=== PATIENT | female | born 1960 | race African-American/Black ===

== ENCOUNTER 2019-08-28 10:15 | Outpatient (RCR) | payer BC, SELFPAY ==
--- NOTE | 2019-08-21 14:23 | PTOPEVAL ---
Thank you for referring Caitlin Myers to [facility] [place]. Please review, sign, date and return this plan of care JOHN. Pt referred to therapy due to chronic back pain. She is limited with all daily activities and work task due to pain and restricted motion. She requires additional skilled therapy to address muscle weakness, decrease trunk and hip motion, soft tissue restriction and increased pain with daily activities. Cont PT 2x/wk x 6 wk. I agree with and certify that the following plan of care is medically necessary. Referring Physician Date Attending Provider: Phyllis Callejas, GARETH Referring Provider: *PT Outpatient Evaluation Start: 08/21/19 13:22 Freq: Status: Active Protocol: Document 08/21/19 13:20 CAP (Rec: 08/21/19 13:58 [facility] [id number]) Therapy Assessment Status Assessment Status Assessment Status Evaluation Outpatient Past Medical History Past Medical History Source of Past Medical History Patient,Recalled from Previous Visit, Confirmed with Patient /Family Cardiovascular History Hx Hypertension Yes Gastrointestinal History Hx Other Gastrointestinal Disorders Yes: weight gain, BMI 40 Musculoskeletal History Hx Back Pain Yes Hx Joint Replacement Yes: darian TKR Integumentary History Hx Eczema Yes Evaluation Information Problem Diagnosis low back pain Onset 6 year Cause unknown Subjective Information Pt was seen by her MD 07/05 for Query Text:As Reported By Patient/ chronic back pain. Family She had previous PT, but does not perform HEP. Does not perform fitness program. REports difficulty with prolonged sitting or standing, bending forward, lower body dressing act. 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 Pain does not wake her at night. Taking over the counter for pain. Previously took percosit Previous Treatments Previous Treatments For This Problem yes,2018 Prior Level of Function Activity Level (Last 3 Months) Occupation [employer] : 8 hours of standing Hand Dominance Left Activity of Daily Living Ability Independent Indoor/Home Mobility Independent Community Mobility Independent Cooking Yes Cleaning Yes Laundry Yes
--- NOTE | 2019-08-28 10:36 | PCPTNOTE ---
Patient did not show up for scheduled appointment this date.
--- NOTE | 2019-08-30 15:55 | PCPTNOTE ---
Patient did not show up for scheduled appointment this date.
--- NOTE | 2019-09-19 09:09 | PCPTNOTE ---
Admitting Provider: Attending Provider: Phyllis Callejas, GARETH Patient:Caitlin Myers Date of :1960 Discharge Summary Patient has not returned for any further treatments since 08/23/2019, therefore she will be discharged at this time. Patient?s initial visit was on 08/21/2019 13:15 and she had a total of 2 visits. No changes in symptoms, function or objective measures due to limited therapy visits received. The goals have been not met due to limited therapy visits attended. Thank you for referring this patient to [facility]. Please review, sign, date and return this discharge summary JOHN. I have been updated about the patient's current status and I agree with discharge from the above service at this time. Referring Physician Date
== END 2019-09-19 12:33 | disposition home or self-care (01) ==
LOC: ANHPT 10:15
PROVIDERS: Visit Provider Physician Assistant
DX: M54.5 Low back pain (principal)
CPT/HCPCS: 97014; 97110; 97140; 97162; G0283

== ENCOUNTER 2020-02-20 09:41 | Outpatient (CLI) | payer BC, SELFPAY ==
--- NOTE | ~2020-02-20 | XR_ITS ---
XR foot RT min 3V DATE: 02/20/2020 09:59 INDICATION: Pain across the dorsum of the right foot for 2 months. No injury. TECHNIQUE: 4 views COMPARISON: None FINDINGS: There is mild plantar calcaneal enthesopathy. No fracture or dislocation, periosteal reacti on or bone destruction. IMPRESSION: Mild plantar calcaneal enthesopathy Reviewed, dictated and finalized at location A.
== END 2020-02-20 09:42 | disposition home or self-care (01) ==
PROVIDERS: PCP Physician Assistant; Visit Provider Physician Assistant
DX: M77.31 Calcaneal spur, right foot (principal)
CPT/HCPCS: 73630

== ENCOUNTER 2020-06-20 17:06 | Emergency (ER) | payer BC, SELFPAY ==
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
[2020-06-20 17:27] VITALS: BP 147/90; PULSE 83; RESP 16; TEMP 36.3; O2SAT 100
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
== END 2020-06-20 19:53 | disposition home or self-care (01) ==
PROVIDERS: Emergency Provider Emergency Medicine; PCP Physician Assistant
DX: M62.838 Other muscle spasm (principal); S43.401A Unspecified sprain of right shoulder joint, initial encounter; I10 Essential (primary) hypertension; V49.50XA Passenger injured in collision with unspecified motor vehicles in traffic accident, initial encounter
CPT/HCPCS: 71046; 73030; 73590; 99284

== ENCOUNTER 2020-10-04 11:15 | Emergency (ER) | payer BC, SELFPAY ==
[2020-10-04 11:24] VITALS: BP 145/79; PULSE 89; RESP 18; TEMP 36.7; O2SAT 100
--- NOTE | 2020-10-04 11:30 | ED.URI ---
HPI - URI/Sore Throat General Chief Complaint: Upper Respiratory Infection Stated Complaint: Shortness of breath,Dizzy Time Seen by Provider: 10/04/20 11:32 Source: patient and RN notes reviewed Mode of arrival: ambulatory Limitations: no limitations History of Present Illness HPI Narrative: 59-year-old female presents with concern for shortness of breath. Reports a history of asthma. Reports history of bronchitis infections. Reports 2 days ago she started having worsening shortness of breath. Reports she has been using her albuterol inhaler over the last 2 days every 3-4 hours. Reports she has nebulizer solution at home, however does not have a machine. Reports on a normal basis when she is feeling healthy she does not need to use her albuterol inhaler. She denies rhinorrhea, nasal congestion, fever, body aches, chills, sweats. Reports she has been Covid vaccinated. MD elicited complaint: other (SOB) Related Data Home Medications Medication Instructions Recorded Confirmed amlodipine 10 mg PO DAILY 10/04/20 10/04/20 atorvastatin 20 mg PO DAILY 10/04/20 10/04/20 ibuprofen 400 mg PO DIRECTED 10/04/20 10/04/20 venlafaxine 37.5 mg PO DAILY 10/04/20 10/04/20 Allergies Allergy/AdvReac Type Severity Reaction Status Date / Time No Known Allergies Allergy Verified 10/04/20 11:37 Review of Systems Review of Systems: Narrative: CONSTITUTIONAL: Denies malaise, chills, sweats, or fever. EYES: Denies visual changes, redness, or discharge. ENT: Denies rhinorrhea, congestion, sinus pain, otalgia and sore throat. CARDIOVASCULAR: Denies chest pain, palpitations, or edema. RESPIRATORY: Reports cough, dyspnea. GASTROINTESTINAL: Denies abdominal pain, nausea, vomiting, diarrhea SKIN: Denies rash or itching. MUSCULOSKELETAL: Denies myalgia. NEUROLOGIC: Denies headache. Reports dizziness All systems reviewed & are unremarkable except as noted in HPI and below PMFSH Comments At time of signature, agree with nursing past medical, surgical, social and family history. There is no relevant family history pertinent to the presenting complaint Exam Narrative: Exam Narrative: GENERAL: Well-appearing, well-nourished, and in no acute distress. HEAD: Normocephalic EYES: PERRLA, conjunctivae clear ENT: Nares clear. Mucous membranes moist. TM pearly dugan with dull light reflex bilaterally; no tragal tenderness. Oropharynx not erythematous without lesions. Tonsils not enlarged and without exudate, no drooling, no hoarseness, no trismus, uvula midline. NECK: Supple. No lymphadenopathy CHEST: Clear to auscultation, breath sounds equal, diminished aeration. No wheezing, rhonchi, rales, or stridor. Conversational dyspnea HEART: Regular rate and rhythm. No murmur heard. SKIN: Warm, dry, no rash. NEURO: Alert and oriented x3. PSYCH: Normal mood and affect Course Course Emergency Course: Patient is aware of diagnosis, understands and agrees to treatment plan. Anticipatory guidance given. Patient agrees to follow-up as directed and is aware of reasons to seek care at the emergency department. Portions of this record may have been created with voice recognition software Reevaluation(s) Reevaluation #1: Aeration improved with DuoNeb treatment. Date: 10/04/20 Time: 12:03 Vital Signs Vital signs: Vital Signs Temperature 98.0 F 10/04/20 11:24 Pulse Rate 89 10/04/20 11:24 Respiratory Rate 18 10/04/20 11:24 Blood Pressure 145/79 H 10/04/20 11:24 Pulse Oximetry 100 10/04/20 11:24 Temperature 98.0 F 10/04/20 11:24 Pulse Rate 89 10/04/20 11:24 Respiratory Rate 18 10/04/20 11:24 Blood Pressure 145/79 H 10/04/20 11:24 Pulse Oximetry 100 10/04/20 11:24 Reviewed. MDM - URI/Sore Throat MDM Narrative Medical decision making narrative: Differential diagnosis considered: Asthma exacerbation, Rogers virus, strep pharyngitis, allergic rhinitis, upper respiratory tract infection, sinusitis, rhinosinusitis, nasopharyngitis. vi
[2020-10-04 11:45] VITALS: PULSE 89; RESP 22; O2SAT 100
[2020-10-04] MEDS: ALBUTEROL SULFATE NEB 2.5 MG/3 ML INH INHALATION (11:45)
[2020-10-04] MEDS: IPRATROPIUM BR 0.02% INH SOLN 0.5 MG/2.5 ML VIAL INHALATION (11:45)
[2020-10-04 12:12] VITALS: PULSE 86; RESP 20; O2SAT 100
== END 2020-10-04 12:15 | disposition home or self-care (01) ==
PROVIDERS: Emergency Provider Nurse Practitioner
DX: J45.901 Unspecified asthma with (acute) exacerbation (principal); E78.00 Pure hypercholesterolemia, unspecified; I10 Essential (primary) hypertension; Z96.653 Presence of artificial knee joint, bilateral
CPT/HCPCS: 94640; 99203; G0463

== ENCOUNTER 2020-12-04 08:17 | Observation (INO) | payer BC, SELFPAY ==
[2020-12-04] VITALS (9 sets, daily range): BP systolic 142–180; BP diastolic 68–100; PULSE 57–93; RESP 14–28; TEMP 36.2–36.6; O2SAT 96–100; BMI 37.9
--- NOTE | ~2020-12-04 | XR_ITS ---
EXAMINATION: XR chest 2V DATE: 12/04/2020 09:02 INDICATION: Chest pain and dizziness TECHNIQUE: AP and lateral views of the chest are obtained. COMPARISON: 06/20/2020 FINDINGS: The lungs are free of acute opacities. There is no pleural effusion or pneumothorax. The ca rdiomediastinal silhouette is normal. There is moderate thoracic spondylosis. IMPRESSION: 1. No acute cardiopulmonary abnormality. Reviewed, dictated and finalized at location B.
--- NOTE | 2020-12-04 08:35 | ECG_ITS ---
Measurements Intervals [place] Rate: 81 P: 65 IN: 162 QRS: -8 QRSD: 85 T: 30 QT: 346 QTc: 404 Interpretive Statements SINUS RHYTHM NONSPECIFIC T-WAVE ABNORMALITY- ANTERIOR LEADS BASELINE ARTIFACT- II, AVR, AVL BORDERLINE ECG Electronically Signed On 12-04-2020 9:07:28 CDT by Maco Lindsey D.O.
[2020-12-04 08:52] LABS: Basophils Percent Auto 0.3 % (0.2-1.2); Eosinophils Percent Auto 0.6 % (0-4.4); Hematocrit 45.3 % (37.0-47.0); Hemoglobin 14.8 g/dL (12.0-15.0); Immature Granulocyte Absolute 0.03 K/mm3 (0.00-0.031); Immature Granulocyte Percent A 0.4 % (0-0.5); Lymphocytes Absolute Auto 1.67 K/mm3 (0.9-3.2); Lymphocytes Percent Auto 23.2 % (18.3-44.2); Mean Corpuscular HGB Conc 32.7 g/dl (32-36); Mean Corpuscular Hemoglobin 28.8 pg (26-34); Mean Corpuscular Volume 88.3 fl (80-100); Mean Platelet Volume 11.1 fl (7.4-10.4); Monocytes Absolute Auto 0.5 K/mm3 (0.1-0.6); Monocytes Percent Auto 7.1 % (2.6-8.5); Neutrophils Absolute Auto 4.9 K/mm3 (1.3-6.7); Neutrophils Percent Auto 68.4 % (45.5-73.1); Platelet Count Result 247 k/mm3 (150-375); Red Blood Count 5.13 M/mm3 (4.2-5.4); Red Cell Distribution Width 13.2 % (11.5-14.5); White Blood Count 7.2 K/mm3 (4.5-10.0)
[2020-12-04 09:02] LABS: Anion Gap 10 mmol/L (8-16); Blood Urea Nitrogen 18 mg/dL (7-17); Calcium 9.4 mg/dL (8.4-10.2); Carbon Dioxide 21 mmol/L (22-30); Chloride 109 mmol/L (98-107); Estimated CRCL calculation 45 ml/min; Estimated Glomerular Filt Rate 56; Glucose 103 mg/dL (65-110); Potassium 3.6 mmol/L (3.4-5.0); Sodium 140 mmol/L (137-145)
[2020-12-04 09:04] LABS: Prothrombin Time 12.8 Seconds (11.1-14.7)
[2020-12-04 09:05] LABS: Partial Thromboplastin Time 24.2 SECONDS (22.3-36.8)
[2020-12-04 09:13] LABS: Troponin I 0.013 ng/mL (0.000-0.034)
[2020-12-04] MEDS: ASPIRIN 81 MG CHEWABLE TABLET 324 MG PO (10:17)
[2020-12-04] MEDS: MORPHINE SULFATE (*CRX) 2 MG/ML INJ IV PUSH (10:17)
[2020-12-04] MEDS: SODIUM CHLORIDE 0.9% IV 1,000 ML 999 ML IV CONT (11:13)
--- NOTE | 2020-12-04 11:17 | ED.GENADULT ---
HPI - General Adult General Chief complaint: Chest Pain Stated complaint: chest pain Time Seen by Provider: 12/04/20 09:37 Source: patient and RN notes reviewed Mode of arrival: ambulatory Limitations: no limitations History of Present Illness HPI narrative: Patient is a 59-year-old female who presents to emergency department for evaluation of midsternal chest pain that began at 8:00 today felt very diaphoretic nauseous and not well at the onset symptoms have presented on arrival to emergency. Patient notes that yesterday she smoked a marijuana cigar with cocaine. Patient developed pain today which has persisted she has not taken anything for it denies similar occurrence in the past denies any URI symptoms or other complaints Related Data Home Medications Medication Instructions Recorded Confirmed [facility] 05/03/19 amlodipine 05/03/19 atorvastatin 05/03/19 hydrochlorothiazide 05/03/19 lisinopril 05/03/19 Allergies Allergy/AdvReac Type Severity Reaction Status Date / Time No Known Allergies Allergy Verified 12/04/20 08:40 Review of Systems Review of Systems: All systems reviewed & are unremarkable except as noted in HPI and below PMFSH Past Medical History Medical History (Updated 12/04/20 @ 11:21 by Darrel Martínez PA-C) HTN (hypertension) Hyperlipidemia Surgical History Surgical History No significant past surgical history Social History Social History (Updated 12/04/20 @ 11:19 by Darrel Martínez PA-C) Smoking status: Never smoker Substance use type: marijuana Gender identity (if verbalized by the patient): Female Exam Narrative: Exam Narrative: GENERAL: Well-appearing, well-nourished, and in no acute distress. HEAD: Normocephalic, atraumatic. EYES: PERRLA and EOMI. ENT: Nares clear, no rhinorrhea or epistaxis. Mucous membranes moist. CHEST: Clear to auscultation. No respiratory distress. No wheezes rales or rhonchi HEART: Regular rate and rhythm. No murmur heard. Normal peripheral pulses. ABDOMEN: Soft, nontender, nondistended EXTREMITIES: Normal range of motion. No edema. SKIN: Warm, dry, no rash. NEURO: No focal deficits. Alert and oriented x3. Cranial nerves II through XII grossly intact PSYCH: Normal mood and affect. Course Course Emergency Course: Patient in the room evaluated for chest pain will be brought into the hospital given her heart care score and her presentation and risk factors patient with ABCs and vital signs intact and stable feeling better at this time resting comfortably in no distress Consultations Consultation #1: Discussed case with the cardiology group will consult on patient Discussed case with the hospitalist Dr. Tyson who is agreed to accept the patient Date: 12/04/20 Time: 11:20 Vital Signs Vital signs: Vital Signs Temperature 97.2 F L 12/04/20 08:35 Pulse Rate 82 12/04/20 08:35 Respiratory Rate 28 H 12/04/20 08:35 Blood Pressure 180/100 H 12/04/20 08:35 Pulse Oximetry 100 12/04/20 08:35 Temperature 97.2 F L 12/04/20 08:35 Pulse Rate 93 12/04/20 10:18 Respiratory Rate 19 12/04/20 10:18 Blood Pressure 145/93 H 12/04/20 10:18 Pulse Oximetry 99 12/04/20 10:18 Medical Decision Making MDM Narrative Medical decision making narrative: Patient presented with chest pain to the hospital will be brought in for further risk ratification and evaluation hemodynamically stable at this time no high risk changes in her initial evaluation agreeing to stay in hospital ABCs and vital signs intact and stable Vital Signs Vital Signs: Vital Signs Temperature 97.2 F L 12/04/20 08:35 Pulse Rate 82 12/04/20 08:35 Respiratory Rate 28 H 12/04/20 08:35 Blood Pressure 180/100 H 12/04/20 08:35 Pulse Oximetry 100 12/04/20 08:35 Temperature 97.2 F L 12/04/20 08:35 Pulse Rate 93 12/04/20 10:18 Respiratory Rate 19 12/04/20 10:18 Blood Pressure 145/
[2020-12-04] MEDS: LIDOCAINE HCL 2% VISC SOLN 15 ML UDC 20 ML PO (11:43)
[2020-12-04] MEDS: MAG HYDROX/AL HYDROX/SIMETH 30 ML UDC PO (11:43)
[2020-12-04] MEDS: MORPHINE SULFATE (*CRX) 4 MG/ML INJ IV PUSH (12:39)
[2020-12-04] MEDS: NITROGLYCERIN SL 0.4 MG TABLET SUBLINGUAL (12:39)
[2020-12-04 12:47] LABS: Cholesterol 214 mg/dL (0-200); HDL Direct 48 mg/dL; Triglycerides 114 mg/dL (<150)
[2020-12-04 12:58] LABS: LDL Cholesterol Direct 110 mg/dL
[2020-12-04 12:59] LABS: Troponin I < 0.012 ng/mL (0.000-0.034)
--- NOTE | 2020-12-04 13:38 | ADMGEN ---
This patient, Caitlin Myers, was admitted to IMU Room 206-0@ 1335. Patient/ oriented to hospital policies and general routines including ID bracelet, bed and alarms, visiting hours, pain management, procedures, bathroom and other care routines, personal items, smoking policy, room service/diet, and visiting hours. Information on how to activate the Rapid Response Team has been discussed. Patient encouraged to report perceived risks to care and to ask questions if they do not understand what they are told or what they should do.
[2020-12-04 15:03] LABS: Troponin I < 0.012 ng/mL (0.000-0.034)
--- NOTE | 2020-12-04 16:55 | PM.IMHP ---
H&P: HPI History of Present Illness Date/Time: 12/04/20 16:55 Chief Complaint: chest pain Narrative: date of service: 12/04/2020 Caitlin Myers is a 59-year-old female with a history of hypertension, hyperlipidemia, COPD, and CVA who Presented to the emergency department on 12/04/2020 with pain. 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 She became diaphoretic and felt lightheaded and nauseous. She developed stabbing substernal chest pain which she rated as 9/10. She told her boss she needed to leave. She then went to her car and sat in the air conditioning for about 10 minutes and started to feel better. She then drove directly to the emergency room. Upon presentation to the emergency department, her blood pressure was elevated at 1 80/100, she was tachypneic, additional vital signs stable, CBC unremarkable, BUN and creatinine slightly elevated with additional electrolytes stable, troponin 0.013 and CXR with no acute cardiopulmonary findings. Upon my evaluation, she was feeling better. She was describing a burning sensation in the chest that she rated as 3/10. She denies symptoms of arm or jaw pain but she thinks she might have had pain in her left shoulder. Of note, she did unknowingly used marijuana laced with cocaine 1 day prior to presentation. She is being admitted to the hospitalist service for observation. Supervising physician for this history and physical is Dr. Rahul Felix. Review of Systems Review of Systems: Narrative: All systems reviewed with pertinent positives and negatives as per HPI. Additionally, patient endorses a frontal headache which occurred after taking a dose of nitroglycerin. She denies dizziness or lightheadedness. Denies numbness or tingling in her extremities. No palpitations. Denies any significant anxiety. She does endorse nausea but has not vomited. Denies shortness of breath, CID, wheezing, cough. she uses her rescue inhaler every 1-2 days. She also complains of chronic low back pain. She has no significant cardiac history aside from hypertension which has previously been uncontrolled. She reports she was hospitalized approximately a year ago with elevated blood pressures and at that time there was concern for possible aortic dissection which was ruled out. She has a family history of heart disease and her mother of an NH when she was 46 years old. PMFSH Past Medical History Medical History (Updated 12/04/20 @ 17:08 by Italia Benton PA-C) COPD (chronic obstructive pulmonary disease) CVA (cerebral vascular accident) HTN (hypertension) Hyperlipidemia Ovarian cyst Surgical History Surgical History (Updated 12/04/20 @ 17:08 by Italia Benton PA-C) History of knee replacement History of tubal ligation No significant past surgical history Family History Family History (Updated 12/04/20 @ 17:09 by Italia Benton PA-C) Grandparent Hypertension Mother Hypertension Heart disease Father Throat cancer Hypertension Social History Social History (Updated 12/04/20 @ 17:11 by Italia Benton PA-C) Social History: Ms. Myers lives at home with her boyfriend. She is independent in her daily activities. She works at a [employer]. Her PCP is Phyllis Jones PA-C. She designates her daughter, Liz, as her surrogate decision maker. She would like to be a full code. Smoking status: Never smoker Alcohol intake: current Alcohol use details: 1 glass of wine/6 months Substance use: current Substance use type: marijuana Other substance usage details: Smokes marijuana daily. Last use: 1 day ago smoked couple blunts of marijuana laced with cocaine Gender identity (if verbalized by the patient): Female Sexual Orientation (if Verbalized by the Patient): Straight or Heterosexual Spiritual care concerns: No Meds Home Medications and Allergies Home Medications Medication Instructions Recorded C
[2020-12-04] MEDS: FAMOTIDINE 20 MG TABLET PO (21:03)
[2020-12-05] VITALS: BP 149/69; PULSE 59; PULSE 65; RESP 16; TEMP 36.6; O2SAT 98
[2020-12-05 02:00] VITALS: PULSE 53
[2020-12-05 04:00] VITALS: BP 159/79; PULSE 56; PULSE 68; RESP 16; TEMP 36.1; O2SAT 100
[2020-12-05 05:18] LABS: Hematocrit 41.8 % (37.0-47.0); Hemoglobin 13.8 g/dL (12.0-15.0); Mean Corpuscular Hemoglobin 29.1 pg (26-34); Mean Corpuscular Volume 88.2 fl (80-100); Mean Platelet Volume 11.2 fl (7.4-10.4); Platelet Count Result 196 k/mm3 (150-375); Red Blood Count 4.74 M/mm3 (4.2-5.4); Red Cell Distribution Width 13.1 % (11.5-14.5); White Blood Count 4.7 K/mm3 (4.5-10.0)
[2020-12-05 05:28] LABS: Anion Gap 6 mmol/L (8-16); Blood Urea Nitrogen 21 mg/dL (7-17); Calcium 8.5 mg/dL (8.4-10.2); Carbon Dioxide 26 mmol/L (22-30); Chloride 109 mmol/L (98-107); Estimated CRCL calculation 46 ml/min; Estimated Glomerular Filt Rate 56; Glucose 88 mg/dL (65-110); Potassium 3.7 mmol/L (3.4-5.0); Sodium 141 mmol/L (137-145)
[2020-12-05 06:00] VITALS: PULSE 52
[2020-12-05 08:00] VITALS: BP 152/90; PULSE 48; PULSE 52; RESP 14; TEMP 36.5; O2SAT 100
--- NOTE | 2020-12-05 08:32 | PM.CNCAR ---
Assessment and Plan Assessment and plan (1) Chest pain: Code(s): R07.9 - Chest pain, unspecified Status: Acute Assessment and Plan: Substernal chest pain that occurred at work yesterday. Relieved in the emergency department with morphine and nitroglycerin and has not returned. EKG obtained in the emergency department Did not show any ST segment abnormalities. Some nonspecific T-wave abnormalities were present. Serial troponins were drawn and were all negative. She is currently free from any chest pain. This does not represent ACS. Recent cocaine use could have contributed to this episode of chest pain. However, she does have risk factors for CAD. Therefore, I will arrange for her to have outpatient MPI performed in our office. Further recommendations to follow as an outpatient. - She was counseled on avoidance of cocaine - I instructed her that if her chest pain is to recur she should proceed to the emergency department. (2) HTN (hypertension): Code(s): I10 - Essential (primary) hypertension Status: Acute Assessment and Plan: Above goal. Would recommend discontinuing ibuporofen for arthritis and switching to tylenol. Will add lisinopril 2.5mg daily for better BP control. (3) Hyperlipidemia: Code(s): E78.5 - Hyperlipidemia, unspecified Status: Acute Assessment and Plan: On statin. Will obtain lipid panel at outpatient Cardiology follow-up visit. Additional Plan Discussed this patient and plan of care with Dr. Perry who is in agreement with the plan outlined in this note. History of Present Illness History of Present Illness Consult date/time: 12/05/20 08:32 Requesting physician: Darrel Martínez PA-C Consult reason: chest pain Reason For Visit: chest pain Narrative: This is a 59-year-old female with a medical history of hypertension, hyperlipidemia, asthma, COPD who I am seeing at the request GARETH Cota for our opinion regarding the patient's chest pain. She presented to the emergency department yesterday afternoon following an episode of chest pain that occurred while she was at work. 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 She says that yesterday while she was at work she had several short, intermittent periods chest tightness. She rates the intensity of the pain as an 8/10. She states that she began to feel lightheaded with these episodes therefore she decided to present to the emergency department for evaluation. She does state that she had a similar episode of chest pain about 1 week ago at work that resolved spontaneously. She also notes that the day prior to having this chest pain at work she smoked some marijuana with a friend that, unbeknownst to her, also had cocaine in it. She denies regular use of cocaine. She also tells me that several years ago while she was living in [place] she experienced some similar chest pain for which she was hospitalized for and underwent and echocardiogram but does not remember having any stress testing performed. She states that from what she remembers her echocardiogram showed a leaky valve but she has not seen a nascar racer since that time. In the emergency department here she was given morphine and nitroglycerin that resulted in resolution of her chest pain. Currently, she is pain-free and not experiencing any symptoms whatsoever. Review of Systems Review of Systems: All systems reviewed & are unremarkable except as noted in HPI and below Constitutional: Constitutional: Denies fatigue and Denies weakness Eyes: Eyes: Denies change in vision ENT: Reports Normal hearing present Cardiovascular: Cardiovascular: Reports chest pain, Reports pedal edema, Reports lightheadedness and Denies palpitations Respiratory: Respiratory: Denies dyspnea and Denies dyspnea on exertion Gastrointestinal: Gastrointestinal: Denies abdominal pain Genitourinary: Genitourin
[2020-12-05] MEDS: FAMOTIDINE 20 MG TABLET PO (09:42)
[2020-12-05] MEDS: amLODIPine BESYLATE 5 MG TABLET 10 MG PO (09:42)
[2020-12-05] MEDS: ASPIRIN 81 MG CHEWABLE TABLET PO (09:42)
--- NOTE | 2020-12-05 09:55 | PM.DS ---
DS: Admitting Diagnosis Admitting Diagnosis chest pain DS: Discharge Diagnosis Discharge Diagnosis (1) Chest pain: Code(s): R07.9 - Chest pain, unspecified Status: Acute Assessment and Plan: Presented with substernal chest pain initially stabbing in nature with associated nausea, diaphoresis, and lightheadedness. resolved. EKG reviewed with anterior T wave change; nonspecific finding Troponins negative x3 Pain resolved with morphine and nitroglycerin She was seen in consultation by cardiology. Not felt to be consistent with ACS. More likely to be related to recent cocaine use. Given her risk factors for CAD (HLD, HTN, obesity, family history) she will follow-up with cardiology as an outpatient for stress testing and echocardiogram Educated on avoidance of cocaine (2) ROBBIE (acute kidney injury): Code(s): N17.9 - Acute kidney failure, unspecified Status: Acute Assessment and Plan: Creatinine is 1.2 at presentation. Suspect pre-renal etiology. Patient was likely dehydrated as she was overheated at work. Received IV fluids. Encouraged adequated PO fluid intake She has been using ibuprofen daily. Discussed avoidance of NSAIDs. Follow up with PCP (3) HTN (hypertension): Code(s): I10 - Essential (primary) hypertension Status: Acute Assessment and Plan: BP was elevated above target. Continue amlodipine Low dose lisinopril added per cardiology recommendations Outpatient follow up with Cardiology for BP monitoring. Adust medications as needed. Avoid use of beta blockers given recent cocaine use (4) Hyperlipidemia: Code(s): E78.5 - Hyperlipidemia, unspecified Status: Acute Assessment and Plan: Lipid panel reviewed with elevated total cholesterol with adequate HDL and LDL Continue atorvastatin 20 mg daily Consider increase to high intensity statin; will follow up with cardiology for cholesterol management Educated on lifestyle modifications DS: Summary Hospital Course Hospital Course: date of admission: 12/04/2020 date of discharge: 12/05/2020 Caitlin Myers is a 59-year-old female with a history of hypertension, hyperlipidemia, COPD, and CVA who presented to the emergency department on 12/04/2020 with complaints of stabbing substernal chest pain with associated nausea and diaphoresis. Upon presentation to the emergency department, her blood pressure was elevated at 1 80/100, she was tachypneic, additional vital signs stable, CBC unremarkable, BUN and creatinine slightly elevated with additional electrolytes stable, troponin 0.013 and CXR with no acute cardiopulmonary findings. She was admitted to the hospitalist service for further evaluation and management and was seen in consultation by cardiology. Please see above for further details and review history and physical. Her chest pain resolved entirely and was not felt to be related to ACS, and rather most likely related to recent cocaine use. she felt much better and requested discharge home. She will follow-up with cardiology as an outpatient for further monitoring. Given overall improvement, she was determined to no longer require inpatient care and felt to be stable for discharge. Consulting services in agreement with discharge we discussed worrisome signs and symptoms for which to return and she was educated on her medications as well as avoidance of cocaine and other drugs. She was discharged in hemodynamically stable condition on 12/05/2020. Status at Discharge Functional status at discharge: independent ambulation Overall status at discharge: patient is back to baseline Time Spent with Patient Time attestation: Total time spent providing and/or coordinating discharge services: 45 minutes Time spent: Greater than 30 minutes Exam Narrative: Exam Narrative: Ms. Myers is a well-nourished, well-appearing 59-year-old female who is lying supine in bed. She ap
[2020-12-05 10:00] VITALS: PULSE 60
== END 2020-12-05 12:05 | disposition home or self-care (01) ==
LOC: ANHED 11:21 → ANHIMU 13:14
PROVIDERS: Physician Assistant; Admitting Provider Internal Medicine; Emergency Provider Emergency Medicine; PCP Physician Assistant; Visit Provider Internal Medicine
DX: R07.9 Chest pain, unspecified (principal); N17.9 Acute kidney failure, unspecified; I10 Essential (primary) hypertension; E78.5 Hyperlipidemia, unspecified; J44.9 Chronic obstructive pulmonary disease, unspecified; Z86.73 Personal history of transient ischemic attack (TIA), and cerebral infarction without residual deficits; M54.5 Low back pain; G89.29 Other chronic pain
CPT/HCPCS: 36415; 71046; 80048; 80061; 84484; 85025; 85027; 85610; 85730; 93005; 96361; 96374; 96375; 96376; 99285; A9270; G0378; G0379; J0131; J2270; J7030

== ENCOUNTER 2021-05-09 08:33 | Emergency (ER) | payer BC, SELFPAY ==
--- NOTE | ~2021-05-09 | XR_ITS ---
XR chest 1V portable DATE: 05/09/2021 09:07 INDICATION: Shortness of breath, chest pain TECHNIQUE: Portable upright AP chest on 05/09/2021 at 0901 hours COMPARISON: 12/04/2020 AP and lateral chest FINDINGS: Normal heart size. Mild aortic unfolding. No hilar or mediastinal enlargement. No pulmonary infiltrate or consolidation, pleural effusion or pulmonary vascular congestion or pneumo thorax. Osteopenia. Degenerative spurring of the thoracic spine. IMPRESSION: No active cardiopulmonary disease Reviewed, dictated and finalized at location A. ER MECHANIC
[2021-05-09 08:37] VITALS: BP 158/114; PULSE 85; RESP 18; TEMP 36.3; O2SAT 98
[2021-05-09 08:42] VITALS: O2SAT 98
--- NOTE | 2021-05-09 08:44 | ECG_ITS ---
Measurements Intervals [place] Rate: 77 P: 57 IA: 165 QRS: -3 QRSD: 79 T: 35 QT: 375 QTc: 427 Interpretive Statements SINUS RHYTHM NORMAL ECG Electronically Signed On 05-09-2021 14:29:26 [employer]STER MECH[employer]IC by Maco Lindsey D.O.
[2021-05-09 09:00] LABS: Alanine Aminotransferase 19 U/L (4-35); Albumin Level 4.2 g/dL (3.5-5.1); Alkaline Phosphatase 77 U/L (38-126); Anion Gap 4 mmol/L (8-16); Aspartate Amino Transferase 26 U/L (14-36); Bilirubin,Total 0.5 mg/dL (0.2-1.3); Blood Urea Nitrogen 14 mg/dL (7-17); Calcium 9.2 mg/dL (8.4-10.2); Carbon Dioxide 24 mmol/L (22-30); Chloride 106 mmol/L (98-107); Estimated CRCL calculation 61 ml/min; Estimated Glomerular Filt Rate > 60; Glucose 94 mg/dL (65-110); Potassium 4.3 mmol/L (3.4-5.0); Sodium 134 mmol/L (137-145)
[2021-05-09 09:03] LABS: Basophils Percent Auto 0.3 % (0.2-1.2); Eosinophils Absolute Auto 0.1 K/mm3 (0-0.3); Eosinophils Percent Auto 1.5 % (0-4.4); Hematocrit 43.8 % (37.0-47.0); Immature Granulocyte Absolute 0.02 K/mm3 (0.00-0.031); Immature Granulocyte Percent A 0.3 % (0-0.5); Lymphocytes Absolute Auto 1.43 K/mm3 (0.9-3.2); Lymphocytes Percent Auto 23.8 % (18.3-44.2); Mean Corpuscular HGB Conc 34.2 g/dl (32-36); Mean Corpuscular Hemoglobin 30.4 pg (26-34); Mean Corpuscular Volume 88.7 fl (80-100); Monocytes Absolute Auto 0.5 K/mm3 (0.1-0.6); Monocytes Percent Auto 8.2 % (2.6-8.5); Neutrophils Percent Auto 65.9 % (45.5-73.1); Platelet Count Result 199 k/mm3 (150-375); Red Blood Count 4.94 M/mm3 (4.2-5.4); Red Cell Distribution Width 13.2 % (11.5-14.5)
[2021-05-09 10:05] VITALS: BP 163/100; PULSE 76; RESP 17; O2SAT 98
--- NOTE | 2021-05-09 10:39 | ED.GENADULT ---
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 Patient is fully vaccinated for COVID-19 last vaccination was August 2020. Patient denies any fever, chills, nausea, vomiting Related Data Home Medications Medication Instructions Recorded Confirmed amlodipine 10 mg DAILY 05/03/19 12/04/20 atorvastatin 20 mg HS 05/03/19 12/04/20 Allergies Allergy/AdvReac Type Severity Reaction Status Date / Time No Known Allergies Allergy Verified 05/09/21 08:43 Review of Systems Review of Systems: CONSTITUTIONAL: Denies fever, chills, or sweats. EYES: Denies visual changes, redness, or discharge. ENT: Denies rhinorrhea, congestion, sore throat, or otalgia. CARDIOVASCULAR: Denies chest pain, palpitations, or edema. RESPIRATORY: Denies cough or dyspnea. GASTROINTESTINAL: Denies abdominal pain, nausea, vomiting, or diarrhea. GENITOURINARY: Denies dysuria or hematuria. SKIN: Denies rash or itching. MUSCULOSKELETAL: Denies back pain, joint pain, or myalgia. NEUROLOGIC: Denies headache, numbness, or weakness. PSYCHIATRIC: Denies anxiety or depression. [facility] Past Medical History Medical History COPD (chronic obstructive pulmonary disease) CVA (cerebral vascular accident) HTN (hypertension) Hyperlipidemia Ovarian cyst Surgical History Surgical History History of knee replacement History of tubal ligation No significant past surgical history Family History Family History Grandparent Hypertension Mother Hypertension Heart disease Father Throat cancer Hypertension Social History Social History Social History: Ms. Myers lives at home with her boyfriend. She is independent in her daily activities. She works at a [employer] plant. Her PCP is Phyllis Jones PA-C. She designates her daughter, Liz, as her surrogate decision maker. She would like to be a full code. Smoking status: Never smoker Alcohol intake: current Alcohol use details: 1 glass of wine/6 months Substance use: current Substance use type: marijuana Other substance usage details: Smokes marijuana daily. Last use: 1 day ago smoked couple blunts of marijuana laced with cocaine Gender identity (if verbalized by the patient): Female Sexual Orientation (if Verbalized by the Patient): Straight or Heterosexual Spiritual care concerns: No Exam Narrative: General appearance: Well-developed, well-nourished Skin: Normal color Head: Normocephalic, nontraumatic Eyes: Clear conjunctiva ENT: Oropharyngeal erythema Neck: Supple, nontender Chest and respiratory: Airway patent, no respiratory distress, no accessory muscle use Heart: Regular rate/rhythm Abdomen: Soft, nontender, no organomegaly, quiet bowel sounds Vascular: Normal peripheral pulses, normal capillary refill. Musculoskeletal: Normal range of motion, nontender back Neurologic: Alert and oriented ?3, DIRECTOR OF ENROLLMENT is normal as tested, no gross motor deficit Course Course Emergency Course: Stable Vital Signs Vital signs: Vital Signs Temperature 36.3 C L 05/09/21 08:37 Pulse Rate 85 05/09/21 08:37 Respiratory Rate 18 1
[2021-05-09 10:52] LABS: PCO2 ABG 30.5 mmHg (35.0-45.0)
[2021-05-09 10:53] LABS: Alveolar/Arterial O2 Gradient 96.2 mmHg; Device ROOM AIR; Fractional Inspired Oxygen 21 %; Modified Allen's Test Pass; Oxygen Content ABG 0.7 %vol (16.0-22.0); Oxygen Saturation ABG 96.3 % (95.0-100.0); Oxyhemoglobin 95.1 % THb (90.0-100.0); PO2 FiO2 Ratio Arterial Blood 4.33 %; Site Drawn RIGHT RADIAL; Total Hemoglobin 15.2 g/dL (12.0-18.0)
[2021-05-09 11:15] LABS: EDCOVIDSCREEN Negative (Negative)
[2021-05-09 11:37] LABS: D Dimer 0.35 ug/mL (<0.48)
[2021-05-09 11:46] LABS: NT Pro B Type Natriuretic Pept 244 pg/mL (5-100); Troponin I < 0.012 ng/mL (0.000-0.034)
[2021-05-09 12:13] VITALS: BP 141/83; PULSE 88; RESP 20; O2SAT 100
[2021-05-09 13:31] VITALS: BP 169/100; PULSE 81; RESP 17; O2SAT 98
[2021-05-10 17:04] LABS: SARS-CoV-2 RNA PCR Negative
== END 2021-05-09 13:33 | disposition home or self-care (01) ==
PROVIDERS: Nurse Practitioner; Emergency Provider Emergency Medicine; PCP Physician Assistant
DX: J06.9 Acute upper respiratory infection, unspecified (principal); Z20.822 Contact with and (suspected) exposure to COVID-19; J44.9 Chronic obstructive pulmonary disease, unspecified; Z86.73 Personal history of transient ischemic attack (TIA), and cerebral infarction without residual deficits; I10 Essential (primary) hypertension; E78.5 Hyperlipidemia, unspecified; Z96.659 Presence of unspecified artificial knee joint
CPT/HCPCS: 36415; 36600; 71045; 80053; 82805; 83880; 84484; 85025; 85380; 87081; 87426; 87804; 87880; 93005; 99284; C9803; U0003; U0005

== ENCOUNTER 2021-09-10 10:06 | Emergency (ER) | payer BC, SELFPAY ==
--- NOTE | ~2021-09-10 | XR_ITS ---
XR chest 2V DATE: 09/10/2021 11:19 INDICATION: Difficulty breathing, productive cough. Smoker. TECHNIQUE: 2 views COMPARISON: 04/19/2021 portable AP chest FINDINGS: Normal heart size. There is aortic unfolding. No hilar or mediastinal enlargement. No pulmonary infiltrate or consolidation, pleural effusion or pulmonary vascular congestion or pneumo thorax. Degenerative spurring of the thoracic spine. Osteopenia IMPRESSION: No active cardiopulmonary disease Reviewed, dictated and finalized at location A.
[2021-09-10 10:15] VITALS: BP 138/85; PULSE 93; RESP 20; TEMP 38; O2SAT 95
--- NOTE | 2021-09-10 10:33 | ED.URI ---
HPI - URI/Sore Throat General Chief Complaint: Upper Respiratory Infection Stated Complaint: sob/cough Time Seen by Provider: 09/10/21 10:34 Source: patient Mode of arrival: ambulatory Limitations: no limitations History of Present Illness HPI Narrative: 60-year-old female with history of asthma presents with complaint of sore throat, nasal congestion, headaches, body aches, cough for 2 to 3 days. Reports she had fever first day, no fever yesterday. Is taking [id number] multisymptom cold relief medication. She reports that she has been short of breath the last 2 days. Is using her inhaler only a little bit due to and almost running out. Denies nausea vomiting diarrhea. All systems reviewed and negative except as noted above. Related Data Home Medications Medication Instructions Recorded Confirmed atorvastatin 20 mg PO DAILY 10/04/20 09/10/21 ibuprofen 400 mg PO DIRECTED 10/04/20 09/10/21 Allergies Allergy/AdvReac Type Severity Reaction Status Date / Time No Known Allergies Allergy Verified 09/10/21 10:21 Review of Systems Review of Systems: CONSTITUTIONAL: Denies fever, chills, or sweats. EYES: Denies visual changes, redness, or discharge. ENT: Reports rhinorrhea, congestion, sore throat. Denies otalgia. CARDIOVASCULAR: Denies chest pain, palpitations, or edema. RESPIRATORY: Reports cough and dyspnea with exertion. GASTROINTESTINAL: Denies abdominal pain, nausea, vomiting, or diarrhea. GENITOURINARY: Denies dysuria or hematuria. SKIN: Denies rash or itching. MUSCULOSKELETAL: Denies back pain, joint pain, or myalgia. NEUROLOGIC: Denies headache, numbness, or weakness. PSYCHIATRIC: Denies anxiety or depression. All other systems reviewed are negative, except as documented in HPI. [facility] Past Medical History Medical History COPD (chronic obstructive pulmonary disease) CVA (cerebral vascular accident) HTN (hypertension) Hyperlipidemia Ovarian cyst Surgical History Surgical History History of knee replacement History of tubal ligation No significant past surgical history Family History Family History Grandparent Hypertension Mother Hypertension Heart disease Father Throat cancer Hypertension Social History Social History (System 07/14/21 @ 15:14 by Bandar Pearce) Social History: Ms. Myers lives at home with her boyfriend. She is independent in her daily activities. 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 She designates her daughter, Liz, as her surrogate decision maker. She would like to be a full code. Smoking status: Never smoker Alcohol intake: current Alcohol use details: 1 glass of wine/6 months Substance use: current Substance use type: marijuana Other substance usage details: Smokes marijuana daily. Last use: 1 day ago smoked couple blunts of marijuana laced with cocaine Gender identity (if verbalized by the patient): Female Sexual Orientation (if Verbalized by the Patient): Straight or Heterosexual Spiritual care concerns: No Comments At time of signature, agree with nursing past medical, surgical, social and family history. There is no relevant family history pertinent to the presenting complaint. Exam Narrative: GENERAL: This is a well-nourished, well-developed patient, in no apparent distress. HEAD: normocephalic, atraumatic. EYES: PERRL. Sclera clear/white. Vision is grossly intact. EARS: External ears normal, auditory canals clear and without drainage, TMs normal without perforation. Hearing grossly intact. NOSE: External nose normal with clear nasal drainage. THROAT: Mucous membranes moist, posterior pharynx clear. NECK: Neck supple, non-tender without lymphadenopathy, masses or thyromegaly. CARDIOVASCULAR: Regular rate and rhythm without murmurs, gallops, or rub
[2021-09-10] MEDS: ALBUTEROL SULFATE NEB 2.5 MG/3 ML INH INHALATION (10:51)
== END 2021-09-10 11:45 | disposition home or self-care (01) ==
PROVIDERS: Emergency Provider Nurse Practitioner Family
DX: J06.9 Acute upper respiratory infection, unspecified (principal); J45.901 Unspecified asthma with (acute) exacerbation; Z20.822 Contact with and (suspected) exposure to COVID-19; J44.9 Chronic obstructive pulmonary disease, unspecified; I10 Essential (primary) hypertension; E78.5 Hyperlipidemia, unspecified; Z86.73 Personal history of transient ischemic attack (TIA), and cerebral infarction without residual deficits; Z96.659 Presence of unspecified artificial knee joint
CPT/HCPCS: 71046; 87426; 87804; 94640; 99213; C9803; G0463

== ENCOUNTER 2021-11-20 14:48 | Emergency (ER) | payer BC, SELFPAY ==
[2021-11-20 15:04] VITALS: BP 157/91; PULSE 79; RESP 18; TEMP 36.5; O2SAT 99
--- NOTE | 2021-11-20 15:19 | ED.URI ---
HPI - URI/Sore Throat General Chief Complaint: Upper Respiratory Infection Stated Complaint: sandoval/dizziness/sob Time Seen by Provider: 11/20/21 15:19 History of Present Illness HPI Narrative: Caitlin Myers is a 60 yo female with a PMH of hypertension high cholesterol [facility] of dizziness, headache, some shortness of breath she is concerned because her son was here over the weekend and was diagnosed with COVID and she is worried about catching COVID. She also has had problems with asthma and requires albuterol treatments and she has no treatments at home; she states that she ran out of nebulizer solution a week ago. She does not drink fluids well Related Data Home Medications Medication Instructions Recorded Confirmed atorvastatin 20 mg tablet 20 mg PO DAILY 10/04/20 09/10/21 amlodipine 11/20/21 Allergies Allergy/AdvReac Type Severity Reaction Status Date / Time No Known Allergies Allergy Verified 11/20/21 15:17 Review of Systems Review of Systems: CONSTITUTIONAL: Denies fever, chills, sweats. Some dizziness EYES: Denies visual changes, redness, discharge. ENT: Denies rhinorrhea, has congestion, scratchy sore throat, otalgia. CARDIOVASCULAR: Denies chest pain, palpitations, edema. RESPIRATORY: Denies dyspnea, wheezing, has cough GASTROINTESTINAL: Denies abdominal pain, nausea, vomiting, diarrhea. GENITOURINARY: Denies dysuria, hematuria, abnormal discharge SKIN: Denies rash or itching. NEUROLOGIC: Denies numbness, or focal weakness. PSYCHIATRIC: Denies anxiety or depression. [facility] Past Medical History Medical History COPD (chronic obstructive pulmonary disease) CVA (cerebral vascular accident) HTN (hypertension) Hyperlipidemia Ovarian cyst Surgical History Surgical History History of knee replacement History of tubal ligation No significant past surgical history Family History Family History Grandparent Hypertension Mother Hypertension Heart disease Father Throat cancer Hypertension Social History Social History Social History: Ms. Myers lives at home with her boyfriend. She is independent in her daily activities. 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 She designates her daughter, Liz, as her surrogate decision maker. She would like to be a full code. Smoking status: Never smoker Alcohol intake: current Alcohol use details: 1 glass of wine/6 months Substance use: current Substance use type: marijuana Other substance usage details: Smokes marijuana daily. Last use: 1 day ago smoked couple blunts of marijuana laced with cocaine Gender identity (if verbalized by the patient): Female Sexual Orientation (if Verbalized by the Patient): Straight or Heterosexual Spiritual care concerns: No Comments At time of signature, I agree with nursing past medical, surgical, social and family history. There is no relevant family history pertinent to the presenting complaint. Exam Narrative: GENERAL: This is a well-nourished, well-developed patient, in mild distress. HEAD: normocephalic, atraumatic. EYES: Sclera clear/white. Vision is grossly intact. EARS: External ears normal, auditory canals clear and without drainage, TMs normal without perforation. Hearing grossly intact. NOSE: External nose normal with nasal discharge, nares without redness, no rhinorrhea. THROAT: Mucous membranes moist, posterior pharynx mild erythema NECK: Neck supple, non-tender CARDIOVASCULAR: Regular rate and rhythm without murmurs, gallops, or rubs. RESPIRATORY: Clear to auscultation. Breath sounds equal bilaterally. No wheezes, rales, or rhonchi. GASTROINTESTINAL: Abdomen soft, non-tender, SKIN: warm, intact with no suspicious lesions
== END 2021-11-20 15:54 | disposition home or self-care (01) ==
PROVIDERS: Emergency Provider Nurse Practitioner
DX: J06.9 Acute upper respiratory infection, unspecified (principal); J45.20 Mild intermittent asthma, uncomplicated; Z20.822 Contact with and (suspected) exposure to COVID-19; J44.9 Chronic obstructive pulmonary disease, unspecified; I10 Essential (primary) hypertension; E78.5 Hyperlipidemia, unspecified; Z86.73 Personal history of transient ischemic attack (TIA), and cerebral infarction without residual deficits; Z96.659 Presence of unspecified artificial knee joint
CPT/HCPCS: 87426; 87804; 99213; C9803; G0463

== ENCOUNTER 2022-01-22 12:55 | Emergency (ER) | payer BC, SELFPAY ==
[2022-01-22 13:03] VITALS: BP 143/108; PULSE 98; RESP 18; TEMP 37.4; O2SAT 99
[2022-01-22] MEDS: ALBUTEROL SULFATE NEB 2.5 MG/3 ML INH INHALATION (13:30)
[2022-01-22] MEDS: IPRATROPIUM BR 0.02% INH SOLN 0.5 MG/2.5 ML VIAL INHALATION (13:31)
[2022-01-22] MEDS: methylPREDNISolone ACETATE 80 MG/ML VIAL IM (13:31)
[2022-01-22 13:32] VITALS: PULSE 102; RESP 22; O2SAT 96
--- NOTE | 2022-01-22 13:41 | ED.URI ---
HPI - URI/Sore Throat General Chief Complaint: Upper Respiratory Infection Stated Complaint: Ear Irritation, Throat Sore, Coughing Time Seen by Provider: 01/22/22 13:10 History of Present Illness HPI Narrative: Caitlin Myers is a 61 yo female with PMH of asthma, HTN, high cholesterol, [facility] throat, right ear pain, a tight cough that feels like a pre-asthmatic attack. Started gradually. She is able to verbalize words but sounds tight with any respiration. She states she has not had a fever has no nausea vomiting or diarrhea. Related Data Home Medications Medication Instructions Recorded Confirmed atorvastatin 20 mg tablet 20 mg PO DAILY 10/04/20 01/22/22 amlodipine 11/20/21 Allergies Allergy/AdvReac Type Severity Reaction Status Date / Time No Known Allergies Allergy Verified 11/20/21 15:17 Review of Systems Review of Systems: CONSTITUTIONAL: Denies fever, chills, sweats. EYES: Denies visual changes, redness, discharge. ENT: Denies rhinorrhea, congestion, sore throat, otalgia. CARDIOVASCULAR: Denies chest pain, palpitations, edema. RESPIRATORY: Denies dyspnea, wheezing, cough GASTROINTESTINAL: Denies abdominal pain, nausea, vomiting, diarrhea. GENITOURINARY: Denies dysuria, hematuria, abnormal discharge SKIN: Denies rash or itching. NEUROLOGIC: Denies numbness, or focal weakness. PSYCHIATRIC: Denies anxiety or depression. [facility] Past Medical History Medical History COPD (chronic obstructive pulmonary disease) CVA (cerebral vascular accident) HTN (hypertension) Hyperlipidemia Ovarian cyst Surgical History Surgical History History of knee replacement History of tubal ligation No significant past surgical history Family History Family History Grandparent Hypertension Mother Hypertension Heart disease Father Throat cancer Hypertension Social History Social History Social History: Ms. Myers lives at home with her boyfriend. She is independent in her daily activities. 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 She designates her daughter, Liz, as her surrogate decision maker. She would like to be a full code. Smoking status: Never smoker Alcohol intake: current Alcohol use details: 1 glass of wine/6 months Substance use: current Substance use type: marijuana Other substance usage details: Smokes marijuana daily. Last use: 1 day ago smoked couple blunts of marijuana laced with cocaine Gender identity (if verbalized by the patient): Female Sexual Orientation (if Verbalized by the Patient): Straight or Heterosexual Spiritual care concerns: No Comments At time of signature, I agree with nursing past medical, surgical, social and family history. There is no relevant family history pertinent to the presenting complaint. Exam Narrative: GENERAL: This is a well-nourished, well-developed patient, in moderate distress. HEAD: normocephalic, atraumatic. EYES: Sclera clear/white. Vision is grossly intact. EARS: External ears normal, auditory canals erythema and without drainage, right canal is tender TMs normal without perforation. Hearing grossly intact. NOSE: External nose normal without nasal discharge, nares without redness, no rhinorrhea. THROAT: Mucous membranes moist, posterior pharynx erythema NECK: Neck supple, non-tender CARDIOVASCULAR: Regular rate and rhythm without murmurs, gallops, or rubs. RESPIRATORY: Very tight to auscultation. Breath sounds equal bilaterally. No wheezes, rales, or rhonchi. Able to talk in full sentences GASTROINTESTINAL: Abdomen soft, non-tender, SKIN: warm, intact with no suspicious lesions or rash, good texture and turgor. NEURO: awake, alert, and oriented to person, plac
[2022-01-22 13:48] VITALS: PULSE 107; RESP 20; O2SAT 97
== END 2022-01-22 14:27 | disposition home or self-care (01) ==
PROVIDERS: Emergency Provider Nurse Practitioner; PCP Physician Assistant
DX: H92.01 Otalgia, right ear (principal); J45.41 Moderate persistent asthma with (acute) exacerbation; R05.2 Subacute cough; F12.90 Cannabis use, unspecified, uncomplicated; J44.9 Chronic obstructive pulmonary disease, unspecified; I10 Essential (primary) hypertension; E78.5 Hyperlipidemia, unspecified; Z86.73 Personal history of transient ischemic attack (TIA), and cerebral infarction without residual deficits
CPT/HCPCS: 94640; 96372; 99213; G0463; J1040